=== PATIENT | male | born 1945 | race Caucasian/White ===

== ENCOUNTER 2016-04-16 07:39 | Day surgery (SDC) | payer MEDICARE ==
--- NOTE | 2016-04-10 20:44 | HP ---
ADMITTING HISTORY AND PHYSICAL: DATE OF ADMISSION: 04/16/16 ADMITTING DIAGNOSIS: Left renal calculus. PLANNED PROCEDURE: Shock wave lithotripsy of left renal calculus. SURGEON: Dr. England. ADMITTING HISTORY AND PHYSICAL: Siva Mills is a 71-year-old gentleman who had previously been seen and treated for a large calculus of the left kidney. He had a 1.7-cm calculus in the left kidney and had undergone stent insertion and lithotripsy in 2016. He did very well and passed a lot of fragments but still has a residual approximately 7-mm calculus and is now being brought in for repeat shock wave lithotripsy in an effort to try to render him stone free. PAST MEDICAL HISTORY: Significant for: 1. High cholesterol. 2. Hypertension. 3. Prostate enlargement. MEDICATIONS: On admission: 1. Pravastatin 80 mg a day. 2. Lisinopril 20 mg a day. 3. Citalopram 20 mg a day. 4. Metoprolol extended release 25 mg a day. 5. Avodart 0.5 mg a day. 6. Flomax 0.8 mg a day. ALLERGIES: No known drug allergies. PHYSICAL EXAMINATION GENERAL: Reveals a pleasant elderly gentleman. VITAL SIGNS: Blood pressure is 118/68; pulse 81 per minute, regular; oxygen saturation 96% on room air; temperature 97.1. LUNGS: Clear bilaterally. CARDIOVASCULAR: Regular rate and rhythm. S1, S2. ABDOMEN: Soft with mild left flank tenderness. IMPRESSION: A 71-year-old gentleman with a nonobstructing calculus in the left kidney, who is being brought in for shock wave lithotripsy. PLAN: Shock wave lithotripsy of left renal calculus. CC: Dr. Shan Banuelos; Dr. Sonny England * [id number]/[facility] #: [id number] [facility]
[~2016-04-16 07:39] MED LIST: Buffered Lidocaine 1% SYR 3ML* 3 ML/SYR SYRINGE INTRADERM ONE; Dexamethasone IV* 4 MG/ML 1 ML (4 MG) IV SLOW PU ONE; Famotidine IV* 10 MG/ML 2 ML (20 mg) IV ONE; Midazolam* 1 MG/ML 2 ML VIAL (2 MG) ONE; fentaNYL* 50 MCG/ML 2 ML VIAL (100 MCG VIAL) ONE
[2016-04-16] MEDS ORDERED: Ondansetron INJ* 2 MG/ML VIAL IV PRN (07:50)
[2016-04-16] MEDS ORDERED: fentaNYL* 50 MCG/ML 2 ML VIAL (100 MCG VIAL) IV PRN (07:50)
[2016-04-16] MEDS ORDERED: DiMENhydriNATE IV* 50 MG/ML VIAL IV PUSH PRN (07:50)
[2016-04-16] MEDS ORDERED: PROCHLORPERAZINE INJ 5 MG/ML 2 ML VIAL IV PRN (07:50)
[2016-04-16] MEDS ORDERED: Famotidine IV* 10 MG/ML 2 ML (20 mg) ONE (08:05)
[2016-04-16] MEDS ORDERED: cefTRIAXone(*) 2 GM ADDV.VIAL IVPB ONE (08:05)
[2016-04-16] MEDS ORDERED: Dexamethasone IV* 4 MG/ML 1 ML (4 MG) ONE (08:05)
[2016-04-16] MEDS ORDERED: Ondansetron INJ* 2 MG/ML VIAL ONE (08:36)
[2016-04-16] MEDS ORDERED: Ketorolac INJ* 30 MG/ML 1 ML VIAL ONE (08:36)
[2016-04-16] MEDS ORDERED: Propofol* 10 MG/ML 20 ML BTL IV PUSH ONE (08:36)
[2016-04-16] MEDS ORDERED: Lidocaine 2% PF * 5 ML VIAL ONE (08:36)
[2016-04-16] MEDS ORDERED: Diatrizoate -DILUTE(CONTRAST) 300 ML BOTTLE BLADDER ONE (08:42)
--- NOTE | 2016-04-16 09:21 | RAD ---
INDICATION: Left-sided nephrolithiasis COMPARISON: January 25, 2016 TECHNIQUE: A single view of the abdomen is submitted. FINDINGS: Bones: There are no acute bony findings. Soft tissues: The soft tissues appear normal. The psoas margins are sharp. Bowel gas pattern: Normal Calcifications: There is a 7 mm lower pole left renal calculus and an adjacent 2 mm calculus. Other: None IMPRESSION: LEFT-SIDED NEPHROLITHIASIS.
[2016-04-16] MEDS ORDERED: EPHEDrine (Pressors)* 50 MG/ML VIAL ONE (09:59)
[2016-04-16 11:44] VITALS: BP 128/64
--- NOTE | 2016-04-16 14:16 | RAD ---
Indication: Nephrolithiasis. Exam done earlier the same day was reviewed. Single view of the abdomen demonstrates fragmentation calcifications left kidney. Right kidney is unremarkable. IMPRESSION: Fragmentation of the previously described calcification overlying the lower pole of left kidney.
--- NOTE | 2016-04-17 01:52 | OP ---
DATE OF OPERATION: 04/16/16 - SDS DATE OF : [birth year] - AGE: 71 years, male. SURGEON: Dr. England. ANESTHESIOLOGIST: Dr. Hull. ANESTHESIA: General. PRE-OP DIAGNOSIS: Left renal calculus. POST-OP DIAGNOSIS: Left renal calculus. OPERATIVE PROCEDURE: Shock wave lithotripsy of left renal calculus. COMPLICATIONS: None. INDICATIONS: Siva Mills is a 71-year-old gentleman who has a history of recurrent renal calculi. He was recently evaluated and noted to have a calculus in the left kidney and desires treatment of the same. DESCRIPTION OF PROCEDURE: After induction of general anesthesia, the patient was placed on lithotomy table in supine position. The calculus in the mid-to- lower pole area of the left kidney was identified on fluoroscopy. Shock wave lithotripsy was commenced at a rate of 90 shocks per minute. After the initial 300 shocks, there was a pause in lithotripsy for several minutes in an effort to minimize any potential trauma to the kidney. He was noted to have some arrhythmia secondary to the lithotripsy and the remainder of the lithotripsy session was carried out in a coupled fashion in order to avoid any ectopy. A total of 2200 shocks were administered and good fragmentation was observed. The patient tolerated the procedure satisfactorily and was transferred back to the recovery area in stable condition. POSTOPERATIVE CONDITION: Stable. CC: Dr. Shan Banuelos; Dr. Sonny England * [id number]/[facility] #: [id number] [facility]
== END 2016-04-16 11:56 | disposition home or self-care (01) ==
LOC: OR 07:39
PROVIDERS: ATTEND Urology
DX: N20.0 Calculus of kidney (principal); I10 Essential (primary) hypertension; I25.10 Atherosclerotic heart disease of native coronary artery without angina pectoris; I25.2 Old myocardial infarction; Z87.891 Personal history of nicotine dependence; N40.0 Benign prostatic hyperplasia without lower urinary tract symptoms
CPT/HCPCS: 74000; J0696; J1100; J1885; J2250; J2405; J2704; J3010

== ENCOUNTER 2017-03-09 19:40 | Emergency (ER) | payer MEDICARE ==
[2017-03-09 19:55] VITALS: BP 143/76
--- NOTE | 2017-03-09 20:04 | UC ---
Truncal Trauma HPI - HPI Summary HPI Summary: Per medical data entry clerk "LEFT RIB PAIN AFTER FALLING ON ICE APPROX 15 MINS AGO." He wants to make sure there is no fracture. Pain with cough. - History Of Current Complaint Chief Complaint: UCTrauma Stated Complaint: PT FELL RIB PAIN Time Seen by Provider: 03/09/17 20:03 - Allergies/Home Medications Allergies/Adverse Reactions: Allergies Allergy/AdvReac Type Severity Reaction Status Date / Time No Known Allergies Allergy Verified 03/09/17 19:55 Home Medications: Home Medications Atorvastatin* [Lipitor 20 MG*] 20 mg PO QPM 03/09/17 [History Confirmed 03/09/17 ] Finasteride TAB* [Proscar TAB*] 5 mg PO BEDTIME 03/09/17 [History Confirmed ] PMH/Surg Hx/FS Hx/Imm Hx Previously Healthy: Yes Endocrine History: Dyslipidemia Cardiovascular History: Cardiac Disease Psychological History: Anxiety, Depression - Surgical History Surgical History: Yes Surgery Procedure, Year, and Place: Quad bi-pass,Bilat Inguinal hernia X2, tonsilectomy. left and right kidney stone removal september 2015. bladder lesion removed august 2015 - Family History Known Family History: Positive: Hypertension - Social History Alcohol Use: None Alcohol Amount: SOCIAL Substance Use Type: None Smoking Status (MU): Former Smoker Type: Cigars Amount Used/How Often: OCCASIONAL CIGAR Length of Time of Smoking/Using Tobacco: 10 yrs Have You Smoked in the Last Year: No When Did the Patient Quit Smoking/Using Tobacco: 4 yrs ago Review of Systems Constitutional: Negative Skin: Negative Eyes: Negative ENT: Negative Respiratory: Cough - mild x 3 days. no wheezing. no COPD/asthma. non-smoker. Cardiovascular: Negative Gastrointestinal: Negative Genitourinary: Negative Motor: Negative Neurovascular: Negative Musculoskeletal: Other: - left mid-lower rib pain Neurological: Negative Psychological: Negative Is Patient Immunocompromised?: No All Other Systems Reviewed And Are Negative: Yes Physical Exam Triage Information Reviewed: Yes Appearance: Well-Appearing, No Pain Distress, Well-Nourished Vital Signs: Initial Vital Signs Temp 99 F 03/09/17 19:48 Pulse 75 03/09/17 19:48 Resp 20 03/09/17 19:48 BP 143/76 03/09/17 19:48 Pulse Ox 98 03/09/17 19:48 Vital Signs Reviewed: Yes ENT Exam: Normal ENT: Positive: Other - trachea midline Neck exam: Normal Neck: Positive: Supple, Nontender, No Lymphadenopathy Respiratory: Positive: Lungs clear, Normal breath sounds, No respiratory distress, No accessory muscle use, Other: - generalized mild-moderate tenderness w/ deep palpation over mid to lower thoracic left back.. Negative: Crackles, Rhonchi, Stridor, Wheezing Cardiovascular Exam: Normal Cardiovascular: Positive: RRR, No Murmur, Pulses Normal Abdominal Exam: Normal Abdomen Description: Positive: Nontender, Soft Neurological Exam: Normal Psychological Exam: Normal Skin Exam: Normal Truncal Trauma Course/Dx - Course Course Of Treatment: left rib xray negative for frx - Differential Dx/Diagnosis Differential Diagnosis/HQI/PQRI: Chest Wall Contusion, Rib Fracture Provider Diagnoses: Left rib contusion Discharge - Discharge Plan Condition: Stable Disposition: HOME Patient Education Materials: Soft Tissue Foreign Body (ED), Rib Contusion (ED) Referrals: Shan Banuelos DO [Primary Care Provider] - Additional Instructions: The diagnosis of soft tissue foreign body listed above is in error.
--- NOTE | 2017-03-09 20:35 | RAD ---
HISTORY: Left posterior rib pain, status post fall COMPARISONS: None VIEWS: 7, Frontal view of the chest with frontal and oblique views of the left hemithorax FINDINGS: There is no displaced rib fracture or pneumothorax. The visualized lungs are clear. The patient is status post median sternotomy. IMPRESSION: NO DISPLACED RIB FRACTURE OR PNEUMOTHORAX.
== END 2017-03-09 20:57 | disposition home or self-care (01) ==
LOC: UCCORT 19:40
DX: S20.20XA Contusion of thorax, unspecified, initial encounter (principal); W00.0XXA Fall on same level due to ice and snow, initial encounter; Y93.9 Activity, unspecified; Y92.9 Unspecified place or not applicable; Z72.89 Other problems related to lifestyle; Z87.891 Personal history of nicotine dependence
CPT/HCPCS: 99212; G0463